=== PATIENT | female | born 1955 | race Caucasian/White ===

== ENCOUNTER 2021-03-23 13:27 | Emergency (ER) | payer MEDICARE, BC | END 2021-03-23 14:25 | disposition home or self-care (01) | LOC: NAV ERS 13:27 | DX: S93.401A Sprain of unspecified ligament of right ankle, initial encounter (principal); S50.311A Abrasion of right elbow, initial encounter; I10 Essential (primary) hypertension; E11.9 Type 2 diabetes mellitus without complications; E78.5 Hyperlipidemia, unspecified; Z79.84 Long term (current) use of oral hypoglycemic drugs; Z79.899 Other long term (current) drug therapy; W10.9XXA Fall (on) (from) unspecified stairs and steps, initial encounter ==